=== PATIENT | male | born 1990 | race Caucasian/White ===

== ENCOUNTER 2020-10-31 20:06 | Emergency (ER) | payer BC ==
[2020-10-31] MEDS ORDERED: Acetaminophen 500 MG TAB ONE (21:11)
[2020-10-31] MEDS ORDERED: Ibuprofen 200 MG TAB ONE (21:11)
== END 2020-10-31 21:16 | disposition home or self-care (01) ==
LOC: CSHERS 20:06
DX: S93.402A Sprain of unspecified ligament of left ankle, initial encounter (principal); F17.210 Nicotine dependence, cigarettes, uncomplicated; X50.1XXA Overexertion from prolonged static or awkward postures, initial encounter